=== PATIENT | female | born 1990 | race Hispanic/Latino ===

== ENCOUNTER 2018-03-24 20:08 | Inpatient (IN) | payer OTHER ==
[~2018-03-24] VITALS: Ht 154.9 cm; Wt 88.9 kg
[2018-03-24] MEDS ORDERED: LACTATED RINGERS 1000ML 1,000 ML IV PRN (20:10)
[2018-03-24] MEDS ORDERED: LACTATED RINGERS 1000ML 1,000 ML IV ONE ×2 (20:24→21:37)
[2018-03-24] MEDS ORDERED: PREN-196 PO (20:28)
[2018-03-24 20:35] LABS: BILIRUBIN,URINE Negative (NEGATIVE); COLOR,URINE Dark Yellow (YELLOW); GLUCOSE, URINE (UA) Negative (NEGATIVE); KETONES,URINE Trace mg/dL (NEGATIVE); LEUKOCYTE ESTERASE ,URINE Moderate (NEGATIVE); NITRATE,URINE Negative (NEGATIVE); OCCULT BLOOD,URINE Negative (NEGATIVE); PH,URINE 5.5 (5.0-8.0); PROTEIN,URINE POS 1+ (NEGATIVE)
[2018-03-24 20:44] LABS: APPEARANCE,URINE CLOUDY (CLEAR)
[2018-03-24 20:47] LABS: BACTERIA,URINE Moderate /HPF (None Seen); CALCIUM OXALATE CRYSTALS,UR Few /LPF (None Seen); RBC,URINE 0-1 /HPF (0-1); SQUAMOUS EPITHELIAL CELL,UR Moderate /HPF (0-2)
[2018-03-24 20:48] LABS: MUCUS,URINE Rare LPF (None Seen)
[2018-03-24 21:08] VITALS: BP 118/67
[2018-03-24 21:17] LABS: HEMATOCRIT 31.1 % (36-48); MEAN CORPUSCULAR HEMOGLOBIN 21.9 pg (27.0-33.0); MEAN CORPUSCULAR HGB CONC 32.3 g/dL (32.0-36.0); MEAN CORPUSCULAR VOLUME 67.7 fL (79-99); PLATELET COUNT (AUTO) 390 K/uL (130-400); RED BLOOD CELL COUNT(AUTO) 4.59 MIL/uL (4.00-5.50); RED CELL DISTRIBUTION WIDTH 16.4 % (11.0-15.5); WHITE BLOOD COUNT (AUTO) 10.5 K/uL (4.8-10.8)
[2018-03-24 21:45] LABS: AMPHET/METH SCREEN,URINE NEGATIVE (NEGATIVE); BARBITURATE SCREEN, URINE NEGATIVE (NEGATIVE); BENZODIAZEPINES SCREEN,URINE NEGATIVE (NEGATIVE); CANNABINOID SCREEN,URINE NEGATIVE (NEGATIVE); COCAINE SCREEN,URINE NEGATIVE (NEGATIVE); OPIATE SCREEN,URINE NEGATIVE (NEGATIVE); PHENCYCLIDINE SCREEN,URINE NEGATIVE (NEGATIVE)
[2018-03-25] VITALS (8 sets, daily range): BP systolic 107–139; BP diastolic 66–84
[2018-03-25] MEDS ORDERED: OXYTOCIN 10 USP UNITS/ML ONE (02:35)
[2018-03-25] MEDS ORDERED: LACTATED RINGERS 1000ML 1,000 ML IV ONE (02:35)
[2018-03-25] MEDS ORDERED: OXYTOCIN 10 USP UNITS/ML 20 UNIT in LACTATED RINGERS 1000ML 1,000 ML IV SCH (03:00)
[2018-03-25] MEDS ORDERED: PROMETHAZINE HCL 25 MG/ML 1ML AMPULE IM ONE (06:24)
[2018-03-25] MEDS ORDERED: MEPERIDINE-PF 50 MG/ML SYG ONE (06:25)
[2018-03-25] MEDS ORDERED: PROMETHAZINE HCL 25 MG/ML 1ML AMPULE IM SCH (06:30)
[2018-03-25] MEDS ORDERED: MEPERIDINE-PF 50 MG/ML SYG IVP ONE (06:30)
[2018-03-25] MEDS ORDERED: MEASLES/MUMPS/RUBELLA VACCINE, LIVE 0.5 ML/VIAL SQ PRN (09:15)
[2018-03-25] MEDS ORDERED: WITCH HAZEL 1 PAD TP PRN (09:15)
[2018-03-25] MEDS ORDERED: BENZOCAINE/LANOLIN/ALOE VERA 60 ML AEROSOL TP PRN (09:15)
[2018-03-25] MEDS ORDERED: DIPH,PERTUSS(ACELL),TET VAC/PF 0.5 ML VIAL IM PRN (09:15)
[2018-03-25] MEDS ORDERED: ACETAMINOPHEN 325 MG TAB PO PRN (09:15)
[2018-03-25] MEDS ORDERED: OXYTOCIN-LR 20 UNITS/1000 ML 1,000 ML IV SCH (09:15)
[2018-03-25] MEDS ORDERED: LANOLIN 30GM OINTMENT TP PRN (09:15)
[2018-03-25] MEDS: IBUPROFEN 800 MG TAB PO PRN (11:38)
[2018-03-25] MEDS: DOCUSATE SODIUM 100 MG CAP PO SCH (20:37)
[2018-03-26 00:56] VITALS: BP 99/61
[2018-03-26 04:36] VITALS: BP 105/64
[2018-03-26 05:44] LABS: MEAN CORPUSCULAR HGB CONC 32.2 g/dL (32.0-36.0); MEAN CORPUSCULAR VOLUME 68.3 fL (79-99); PLATELET COUNT (AUTO) 368 K/uL (130-400); RED BLOOD CELL COUNT(AUTO) 4.25 MIL/uL (4.00-5.50); RED CELL DISTRIBUTION WIDTH 15.8 % (11.0-15.5); WHITE BLOOD COUNT (AUTO) 11.9 K/uL (4.8-10.8)
[2018-03-26 06:17] LABS: HEPATITIS Bs ANTIGEN SCREEN P Negative (Negative)
[2018-03-26 07:24] VITALS: BP 109/65
[2018-03-26] MEDS: IBUPROFEN 800 MG TAB PO PRN (09:21)
[2018-03-26] MEDS: DOCUSATE SODIUM 100 MG CAP PO SCH (10:25)
[2018-03-26 11:17] VITALS: BP 128/80
== END 2018-03-26 14:00 | disposition home or self-care (01) | DRG 775 ==
LOC: LDH 20:08 → WSH 03-25 09:05
PROVIDERS: ADMIT Obstetrics & Gynecology; ATTEND Obstetrics & Gynecology
PROC: 10E0XZZ Delivery of Products of Conception, External Approach (ICD-10-PCS; principal; 2018-03-25)
DX: O77.0 Labor and delivery complicated by meconium in amniotic fluid (principal); O69.89X0 Labor and delivery complicated by other cord complications, not applicable or unspecified; Z37.0 Single live birth; Z3A.39 39 weeks gestation of pregnancy
CPT/HCPCS: 36415; 80305; 81001; 85027; 86592; 86850; 86900; 86901; 87340; 90715; A4351; A4606; J2175; J2550; J2590; J7120